=== PATIENT | female | born 1965 ===

== ENCOUNTER 2018-10-16 22:03 | Emergency (ER) | payer OTHER ==
[2018-10-16 22:09] VITALS: RESP 16
[2018-10-16] MEDS ORDERED: Sodium Chloride 0.9% 1,000 ML IV STA (22:34)
--- NOTE | 2018-10-16 22:39 | ED PDOC ---
HPI: Abdomen Time Seen by Provider: 10/16/18 22:15 Chief Complaint (Nursing): Abdominal Pain Chief Complaint (Provider): Abdominal Pain, Vomiting History Per: Patient, Community Affairs Director History/Exam Limitations: no limitations Onset/Duration Of Symptoms: Days Additional Complaint(s): Denis MUNGUIA [id number] 53 year old female presents to ED with abdominal pain, nausea, 3 episodes of vomiting. She states that she has had a left sided headache, chills, runny nose, back pain, facial pain since midnight yesterday but denies diarrhea. Patient did not take her own temperature but took Tylenol once for the pain at 6 PM today. PMD: Yair De La Torre Past Medical History Reviewed: Historical Data, Nursing Documentation, Vital Signs Vital Signs: Last Vital Signs Temp 99.6 F 10/16/18 22:04 Pulse 96 H 10/16/18 22:04 Resp 16 10/16/18 22:04 BP 127/87 10/16/18 22:04 Pulse Ox 96 10/16/18 22:04 Primary Care Provider: Yair De La Torre - Medical History PMH: No Chronic Diseases - Surgical History Other surgeries: Ovarian cysts. Hysterectomy. Intestine surgery - Family History Family History: States: No Known Family Hx - Social History Current smoker - smoking cessation education provided: No Alcohol: None Drugs: Denies - Allergies Allergies/Adverse Reactions: Allergies Allergy/AdvReac Type Severity Reaction Status Date / Time No Known Allergies Allergy Verified 10/16/18 22:10 Review of Systems ROS Statement: Except As Marked, All Systems Reviewed And Found Negative Constitutional: Positive for: Chills ENT: Positive for: Nose Pain (facial pain), Nose Discharge (runny nose) Gastrointestinal: Positive for: Nausea, Vomiting (x3), Abdominal Pain. Negative for: Diarrhea Musculoskeletal: Positive for: Back Pain Neurological: Positive for: Headache (left sided) Physical Exam - Reviewed Nursing Documentation Reviewed: Yes Vital Signs Reviewed: Yes - Physical Exam Appears: Positive for: Uncomfortable Head Exam: Positive for: ATRAUMATIC Skin: Positive for: Normal Color, Warm, Dry Eye Exam: Positive for: EOMI, Normal appearance, PERRL ENT: Positive for: Sinus Pain/Drainage (left frontal sinus tenderness) Neck: Positive for: Normal, Painless ROM, Supple Cardiovascular/Chest: Positive for: Regular Rate, Rhythm. Negative for: Murmur Respiratory: Positive for: Normal Breath Sounds. Negative for: Respiratory Di stress Gastrointestinal/Abdominal: Positive for: Tenderness (bilateral lower quadrant ) Back: Positive for: Normal Inspection Extremity: Positive for: Normal ROM. Negative for: Tenderness, Deformity Neurological/Psych: Positive for: Awake, Alert, Oriented (x3). Negative for: Motor/Sensory Deficits - ECG O2 Sat by Pulse Oximetry: 96 (RA) Pulse Ox Interpretation: Normal Medical Decision Making Medical Decision Making: Time: 2224 Initial Impression: Initial Plan: --CT Abd & Pelvis --CT Head --Labs (CBC, CMP) --IV Fluids --EKG --U-dip --CXR --Influenza --Urinalysis Scribe Attestation: Documented by Vasu Sellers acting as a scribe for Vidhi Cramer MD. Provider Scribe Attestation: All medical record entries made by the Scribe were at my direction and personally dictated by me. I have reviewed the chart and agree that the record accurately reflects my personal performance of the history, physical exam, medical decision making, and the department course for this patient. I have also personally directed, reviewed, and agree with the discharge instructions and disposition. Disposition - Disposition Forms: [employer] (Lao)
[2018-10-16 23:22] LABS: BASO % 0.6 % (0.0-2.0); EOS % 0.5 % (0.0-4.0); HEMOGLOBIN 13.7 g/dL (12.0-16.0); LYMPH # 0.9 K/uL (1.0-4.3); LYMPH % 13.7 % (20.0-40.0); MEAN CELL VOLUME 88.7 fl (81.0-99.0); MEAN CORPUSCULAR HEMOGLOBIN 29.1 pg (27.0-31.0); MEAN CORPUSCULAR HGB CONC 32.8 g/dL (33.0-37.0); MEAN PLATELET VOLUME 7.8 fl (7.2-11.7); MONO # 0.6 K/uL (0.0-0.8); MONO % 9.4 % (0.0-10.0); NEUT # 5.1 K/uL (1.8-7.0); NEUT % 75.8 % (50.0-75.0); RBC 4.71 Mil/uL (3.80-5.20); RED CELL DISTRIBUTION WIDTH 13.9 % (11.5-14.5); WHITE BLOOD COUNT 6.8 K/uL (4.8-10.8)
[2018-10-16] MEDS ORDERED: Iohexol 300 100 ML IJ ONE (23:34)
[2018-10-16] MEDS ORDERED: Sodium Chloride 0.9% 50 ML IV ONE (23:35)
--- NOTE | 2018-10-16 23:35 | ED PDOC ---
- Laboratory Results Result Diagrams: 10/16/18 23:18 10/16/18 23:18 - ECG O2 Sat by Pulse Oximetry: 96 (RA) Pulse Ox Interpretation: Normal Medical Decision Making Medical Decision Makin:00 Patient care endorsed from Dr. Cramer to provider pending CT 00:22 CT Abd Pelvis Findings: Chest: The visualized lung bases are clear. Abdomen: The liver, spleen, pancreas, gallbladder, and adrenal glands are unremarkable. There is mild right-sided hydronephrosis and hydroureter, to the level of the iliac crests. At this site, there is narrowing of the lumen of the right ureter. No focal obstructing stone or mass is identified. The left renal collecting system is grossly unremarkable. The aorta is within normal limits. There is no evidence of abdominal lymphadenopathy or ascites. Pelvis: Moderate amount of stool fills the colon. There is mild sigmoid diverticulosis without evidence of diverticulitis. The bowel is of the otherwise unremarkable, with no obstructive or inflammatory changes. An ovoid radiopaque density is seen in the terminal ileum at the ileocecal junction, likely representing a pill. The appendix is normal. The urinary bladder is within normal limits. The patient is status post hysterectomy. There is no evidence of pelvic lymphadenopathy or ascites. Bones: There are no suspicious osseous abnormalities seen. Impression: 1. Mild constipation. Minimal sigmoid diverticulosis. No obstructive or inflammatory bowel changes. 2. Mild right-sided hydronephrosis and hydroureter, extending to the level of the iliac crests. No obstructing stone or mass is identified. Because of this mild obstruction is uncertain. If there is further clinical concern, CT urogram could be performed. Results were explained to the patient using certified block engraver JOE Lux. Patient re-evaluated at bedside and states that she is feeling significantly improved, no longer having pain. Advised patient over her diagnosis and need for diet modification and importance of followup this week regarding non-acute finding on CT. Very well appearing, tolerating PO, vitals stable upon discharge. ------- Scribe Attestation: Documented by Dayron Goldsmith, acting as a scribe Jim Patel MD. Provider Scribe Attestation: All medical record entries made by the Scribe were at my direction and personally dictated by me. I have reviewed the chart and agree that the record accurately reflects my personal performance of the history, physical exam, medical decision making, and the department course for this patient. I have also personally directed, reviewed, and agree with the discharge instructions and disposition. Disposition - Clinical Impression Clinical Impression: Diverticulosis - POA Present On Arrival: None - Disposition Referrals: Yair De La Torre MD [Family Provider] - Disposition: Routine/Home Disposition Time: 00:22 Condition: IMPROVED Prescriptions: Dicyclomine [Bentyl] 20 mg PO BID #30 tab Ibuprofen [Motrin Tab] 600 mg PO Q6 #30 tab Instructions: Diverticulosis Forms: [facility] (Sammarinese) Print Language: [place] R[place]
[2018-10-16 23:44] LABS: ALB/GLOB RATIO 1.2 (1.0-2.1); ALBUMIN 4.7 g/dL (3.5-5.0); ALT/SGPT 46 U/L (9-52); AST/SGOT 34 U/L (14-36); BLOOD UREA NITROGEN 8 mg/dl (7-17); CALCIUM 9.1 mg/dL (8.4-10.2); GFR NON-AFRICAN AMERICAN > 60
[2018-10-17 01:20] LABS: URINE BILIRUBIN NEGATIVE (NEGATIVE); URINE BLOOD NEGATIVE (NEGATIVE); URINE CLARITY CLEAR (Clear); URINE COLOR COLORLESS (YELLOW); URINE GLUCOSE (UA) NEG (NEGATIVE); URINE LEUKOCYTE ESTERASE NEG Leu/uL (Negative); URINE PROTEIN NEGATIVE (NEGATIVE); URINE UROBILINOGEN 0.2-1.0 mg/dL (0.2-1.0)
[2018-10-17 01:35] VITALS: BP 132/71; PULSE 84; TEMP 98.5
[2018-10-17 04:02] VITALS: O2SAT 96
--- NOTE | 2018-10-17 09:03 | RAD ---
Date of service: 10/16/2018 HISTORY: Back pain COMPARISON: No prior. TECHNIQUE: Chest PA and lateral views FINDINGS: LUNGS: No acute pulmonary disease. A small calcified granuloma supra shaded at the likely right middle lobe laterally seen in both fused. PLEURA: No significant pleural effusion identified. No pneumothorax apparent. CARDIOVASCULAR: No aortic atherosclerotic calcification present. Normal cardiac size. No pulmonary vascular congestion. OSSEOUS STRUCTURES: No significant abnormalities. VISUALIZED UPPER ABDOMEN: Normal. OTHER FINDINGS: None. IMPRESSION: No acute cardiopulmonary disease appreciated.
--- NOTE | 2018-10-17 11:25 | CARD ---
APPROVED REPORT Date of service: 10/16/2018 EKG Measurement Heart [id number] <Conclusion> Normal sinus rhythm Nonspecific ST and T wave abnormality Abnormal ECG
--- NOTE | 2018-10-17 13:26 | CT ---
Date of service: 10/16/2018 PROCEDURE: CT Abdomen and Pelvis with contrast HISTORY: BLQ pain COMPARISON: None. TECHNIQUE: Following the intravenous administration of iodinated contrast material, a CT examination of the abdomen and pelvis was performed from the domes of the diaphragms to the symphysis pubis with reformatted datasets provided in axial, sagittal and coronal planes. Oral contrast was not administered as per referring physician request. Contrast dose: Omnipaque 300, 90 cc Radiation dose: Total exam DLP = 264.7 mGy-cm. This CT exam was performed using one or more of the following dose reduction techniques: Automated exposure control, adjustment of the mA and/or kV according to patient size, and/or use of iterative reconstruction technique. FINDINGS: LOWER THORAX: Limited bibasilar dependent atelectasis with lung bases otherwise unremarkable appearing. LIVER: Unremarkable. No gross lesion or ductal dilatation. GALLBLADDER AND BILE DUCTS: Unremarkable. PANCREAS: Unremarkable. No gross lesion or ductal dilatation. SPLEEN: Unremarkable. ADRENALS: Unremarkable. No mass. KIDNEYS AND URETERS: Borderline right hydronephrosis and mild to moderate right hydroureter may be a function of lucent calculus or distal right ureteral stricture. No perinephric reaction. No left-sided obstructive uropathy. No renal mass appreciable bilaterally. VASCULATURE: Unremarkable. No aortic aneurysm. No aortic atherosclerotic calcification or mural plaque present. BOWEL: No definite bowel obstruction appreciable. Stomach is decompressed and limited in evaluation. Moderate amount retained fecal material is identified at the proximal and middle thirds of the colon with a limited amount in the remainder. There is an ovoid radiodensity best seen in coronal images 42-46 likely present within a distal ileal loop abutting the medial cecum but clearly separate from the appendix and the ileocecal valve. While this could represent a pill, its shape is maintained this far in the small bowel with no defined defects. Is unclear whether this represents a small pill or possible GI camera. Clinically correlate further. It does not appear to be metallic and therefore a camera is not favored. This may be an ingested foreign body. APPENDIX: Normal appendix. PERITONEUM: Unremarkable. No free fluid. No free air. LYMPH NODES: Unremarkable. No enlarged lymph nodes. BLADDER: Distended but thin and smooth walled. REPRODUCTIVE: Unremarkable. BONES: No acute fracture. OTHER FINDINGS: None. IMPRESSION: 1. Mildly prominent fecal loading is seen in the proximal and mid large-bowel and minimally the distal large bowel. No bowel obstruction, mesenteric edema, ascites or free intra peritoneal gas collection identified. 2. Borderline right hydronephrosis and mild to moderate right hydroureter may be a function of lucent calculus or distal right ureteral stricture. No perinephric reaction. Urinary bladder is distended and this could be a function of hydrostatic pressure related dilatation. Further clinical correlation advised. 3. Possible undigested pill or even GI camera at a distal small bowel loop medial to the cecum. Ingested foreign body is also a possibility. Preliminary report provided by [facility], 10/17/2018, 12:22 a.m..
--- NOTE | 2018-10-17 14:00 | CT ---
Date of service: 10/16/2018 PROCEDURE: CT HEAD WITHOUT CONTRAST. HISTORY: L sided HERRON COMPARISON: None available. TECHNIQUE: Axial computed tomography images were obtained through the head/brain without intravenous contrast. Radiation dose: Total exam DLP = 730.98 mGy-cm. This CT exam was performed using one or more of the following dose reduction techniques: Automated exposure control, adjustment of the mA and/or kV according to patient size, and/or use of iterative reconstruction technique. FINDINGS: HEMORRHAGE: No intracranial hemorrhage. BRAIN: Normal greene-white matter differentiation and density are appreciated throughout the cerebrum and cerebellum with the brainstem appearing unremarkable as well. There is no mass effect. There is no suspicious extra-axial fluid collection and the midline brain anatomy appears diffusely unremarkable. VENTRICLES: Unremarkable. No hydrocephalus. CALVARIUM: Unremarkable. PARANASAL SINUSES: Limited sinus disease is seen at multiple left ethmoid air cells. MASTOID AIR CELLS: Unremarkable as visualized. No inflammatory changes. OTHER FINDINGS: None. IMPRESSION: No acute intracranial findings. Limited incidental sinusitis left ethmoid air cells. Concordant preliminary report from [facility], 10/17/2018, 12:20 a.m..
== END 2018-10-17 01:34 | disposition home or self-care (01) ==
LOC: H.ER 22:03
DX: K57.30 Diverticulosis of large intestine without perforation or abscess without bleeding (principal)
CPT/HCPCS: 70450; 71046; 74177; 80053; 81003; 82948; 85025; 87804; 93005; 96374; 99284; J1885; J2405; J7030; Q9967